=== PATIENT | male | born 1985 | race Caucasian/White ===

== ENCOUNTER → 2024-05-07 | Outpatient (CLI) | payer BC ==
[2024-05-07 23:04] LABS: Appearance,Urine Clear (Clear); Bilirubin,Urine Negative (Negative); Blood,Urine Negative (Negative); Color,Urine Yellow (Yellow); Ketones,Urine Negative (Negative); Nitrite,Urine Negative (Negative); Specific Gravity,Urine 1.017 (1.001-1.030); Urobilinogen,Urine 0.2 E.U./DL
== END | disposition home or self-care (01) ==
LOC: LABMAIN 12:36
PROVIDERS: ATTEND Dermatology MOHS-Micrographic Surgery
CPT/HCPCS: 81003; 86038

== ENCOUNTER → 2024-07-13 | Outpatient (CLI) | payer BC ==
[2024-07-13 20:53] LABS: Hepatitis B Surface Antigen Nonreactive (Nonreactive); Hepatitis C IgG Antibody Nonreactive (Nonreactive)
[2024-07-13 22:36] LABS: EBV-EA (IgG) 0.4 AI; EBV-EBNA(IgG) >8.0; EBV-VCA (IgG) >8.0 AI; EBV-VCA (IgM) <0.2 AI
== END | disposition home or self-care (01) ==
LOC: LABWHC1 12:34
PROVIDERS: ATTEND Physician Assistant Medical
DX: L30.8 Other specified dermatitis (principal); L95.8 Other vasculitis limited to the skin
CPT/HCPCS: 36415; 85652; 86618; 86663; 86664; 86665; 86706; 86803; 87340

== ENCOUNTER → 2024-10-02 | Outpatient (CLI) | payer BC | END | disposition home or self-care (01) | LOC: LABWHC1 15:57 | PROVIDERS: ATTEND Dermatology MOHS-Micrographic Surgery | DX: D48.5 Neoplasm of uncertain behavior of skin (principal); L30.8 Other specified dermatitis | CPT/HCPCS: 36415; 83520 ==